=== PATIENT | male | born 1995 | race Two or more races ===

== ENCOUNTER 2021-05-29 02:48 | Emergency (ER) | payer OTHER ==
[~2021-05-29] VITALS: Ht 167.6 cm; Wt 70.3 kg
[2021-05-29 03:07] VITALS: BP 137/79
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
== END 2021-05-29 04:22 ==
LOC: ER 02:52
DX: S01.511A Laceration without foreign body of lip, initial encounter (principal); Y08.89XA Assault by other specified means, initial encounter; Y93.89 Activity, other specified; Y92.89 Other specified places as the place of occurrence of the external cause; Y99.8 Other external cause status
CPT/HCPCS: 12011; 99283; A6403